=== PATIENT | male | born 1945 | race Caucasian/White ===

== ENCOUNTER 2025-06-14 07:30 | Day surgery (SDC) | payer OTHER, SELFPAY ==
[2025-06-14] VITALS (14 sets, daily range): BP systolic 124–156; BP diastolic 69–81; BMI 27.0
[2025-06-14] MEDS: NSS 227 ML IV (09:51)
--- NOTE | 2025-06-14 11:38 | ITS.CL.CATH ---
Pbx Operator - Catheterization
Cardiac Catheterization
Procedure Report:
CARDIAC CATHETERIZATION REPORT
Date of Procedure: 06/14/2025
Referring: Jomar Lucas D.O.
INDICATION: Chest pain, abnormal stress test.
PROCEDURE:
1. Left heart catheterization.
2. Coronary angiography
A total of 30 minutes of procedural/moderate sedation was utilized. An independent medical insurance clerk was present to assist with and help manage the patient's level of consciousness and physiologic status.
ACCESS:
1. 6 Filipino right radial artery using a modified Seldinger technique.
CATHETERS:
1. 5 Filipino JR4.
2. 5 Filipino JL 3.5.
3. 6 Filipino AR 1.
HEMODYNAMIC DATA
Weight (kg): 75.8
AO (s/d/x, mmHg): 130/75/101
LV (s/x mmHg): 130/6
AV gradient (x, mmHg): None.
LEFT VENTRICULOGRAPHY: Not performed.
CORONARY ANGIOGRAPHY
Dominance: Right.
Left Main: Normal size, bifurcating vessel. There is an 80% lesion in the ostium of the left main coronary artery.
LAD: Normal size vessel with multiple small diagonals. There are luminal irregularities and dense external calcification in the proximal vessel.
Ramus: Congenitally absent.
Circumflex: Large size, nondominant vessel giving rise to 2 obtuse marginals before turning towards the apex as a large left posterolateral branch. There may be some disease in the first obtuse marginal, but the gentle injection due to the
dampening does not fully opacify OM1. The remainder of the circumflex is normal.
RCA: Small to medium size, dominant vessel with a large conus branch and a low origin requiring an AR-1 catheter for engagement. The vessel is chronically totally occluded in its midsection. The distal RCA and RPDA fill via right to right
bridging collaterals.
INTERVENTION(S)
None.
Closure Device: Vascular band.
Radiation (mGy): 463.23
DAP (cm2.Gy): 37.8550
Fluoroscopy time (minutes): 6.2
CONCLUSIONS
1. Right dominant circulation with a mid vessel chronic total occlusion with bridging collaterals of the low-lying RCA which requires an AR-1 for engagement, an 80% lesion in the ostium of the left main coronary artery and possible disease in the
first obtuse marginal that is not fully opacified due to gentle injection from catheter dampening in the left main.
2. Normal filling pressures (LVEDP = 6 mmHg at 75.8 kg).
RECOMMENDATIONS:
1. Expectant management after cardiac catheterization via right radial approach.
2. Limited weight bearing on the right wrist for one week.
3. Consultation with CT surgery regarding optimal revascularization strategy. The ostial nature of the left main coronary artery would be a good candidate for PCI or surgery. PCI would not address his right coronary artery PROCEDURE RN.
4. OMT/GDMT as hemodynamics will tolerate. Continue metoprolol and add isosorbide mononitrate 30 mg daily.
5. Aggressive lipid management. Continue high-dose, high potency statin with goal LDL <55.
6. Echocardiogram ordered and pending to evaluate LV function and valve function.
Copy to: Jomar Lucas D.O., Pal Choi D.O.
Jayden Corbin, DO, FACC, FACP
[2025-06-14] MEDS: NSS 1000 IV (12:32)
== END 2025-06-14 15:15 | disposition home or self-care (01) ==
LOC: CATH 07:30
PROVIDERS: ATTENDING PHYSICIAN Internal Medicine Cardiovascular Disease; FAMILY PHYSICIAN Family Medicine; OTHER PHYSICIAN Internal Medicine Cardiovascular Disease
DX: I25.10 Atherosclerotic heart disease of native coronary artery without angina pectoris (principal); R07.9 Chest pain, unspecified; R94.39 Abnormal result of other cardiovascular function study; I25.82 Chronic total occlusion of coronary artery
CPT/HCPCS: 93306; 93458; C1769; C1894; Q9967

== ENCOUNTER 2025-06-28 07:08 | Day surgery (SDC) | payer OTHER, SELFPAY ==
[2025-06-28] VITALS (19 sets, daily range): BP systolic 96–157; BP diastolic 59–87; BMI 26.4
[2025-06-28 08:08] LABS: Hematocrit 37.0 % (39.0-52.0); Hemoglobin 13.0 g/dL (13.0-18.0); Mean Corp Hgb Conc. 35.1 g/dL (33.0-37.0); Mean Corpuscular Volume 105.7 fL (80.0-94.0); Platelet Count 118 10^3/uL (130-400); Red Cell Dist. Width 13.2 % (11.5-14.5)
[2025-06-28 08:20] LABS: Blood Urea Nitrogen 28 mg/dl (9-20); Calcium 9.0 mg/dl (8.4-10.2); Carbon Dioxide 27 mmol/L (22-30); Chloride 109 mmol/L (98-107); Estimated Creatinine Clearance 39 ml/min; Glucose 102 mg/dl (70-99); Potassium 4.1 mmol/L (3.5-5.1); Sodium 142 mmol/L (135-145); eGFR 50.81
[2025-06-28] MEDS: NSS 229 ML IV (08:20)
--- NOTE | 2025-06-28 10:05 | ITS.CL.ANGIO ---
Screener Perfumer - Angioplasty
Angioplasty
Procedure Report:
CARDIAC CATHETERIZATION REPORT
Date of Procedure: 06/28/2025
Referring: Dominguez Figueroa M.D.
INDICATION: Known left main coronary artery stenosis, pending prostate cancer treatment, post consultation with CT surgery at which point it was determined that there was equipoise between CABG and PCI.
PROCEDURE:
1. Left heart catheterization.
2. Left coronary angiography.
3. Successful IVUS guided PCI of the 90% ostial left main coronary artery disease lesion.
A total of 69 minutes of procedural/moderate sedation was utilized. An independent medical imaging technologist was present to assist with and help manage the patient's level of consciousness and physiologic status.
ACCESS:
1. 6 [place] Citizen right radial artery using a modified Seldinger technique.
CATHETERS:
1. 6 [place] Citizen JL 3.5 guiding catheter..
2. 5 [place] Citizen JR4.
HEMODYNAMIC DATA
Weight (kg): 76.2
AO (s/d/x, mmHg): 161/84/116
LV (s/x mmHg): 164/19 (A wave to 32)
AV gradient (x, mmHg): None.
LEFT VENTRICULOGRAPHY: Not performed.
CORONARY ANGIOGRAPHY
Dominance: Right.
Left Main: Normal size, bifurcating vessel. There is an 80-90% lesion in the ostium of the left main coronary artery with moderate calcification.
LAD: Normal size vessel with multiple small diagonals. There are luminal irregularities and dense external calcification in the proximal vessel.
Ramus: Congenitally absent.
Circumflex: Large size, nondominant vessel giving rise to 2 obtuse marginals before bending towards the apex as a large left posterolateral branch. There is a 70% lesion in the midportion of the first obtuse marginal.
RCA: Not injected. Known to be a small to medium size, dominant vessel with a large conus branch in the low origin requiring an AR-1 for catheter engagement. The vessel is known to be chronically totally occluded in its midsection with
the distal RCA filling the via right to right bridging collaterals.
INTERVENTION(S)
1. Successful IVUS guided PCI of the 80-90% ostial left main coronary artery lesion (Xience Skypoint 3.5 x 12 GRAEME, postdilated with a 4.0 NC balloon) with reduction of stenosis to 0%, maintaining MARCIN-3 flow.
Narrative:
The decision was made to proceed with percutaneous coronary intervention. The 6Fr JL 3.5 guiding catheter was advanced to the aortic root and seated in the left main coronary artery, with immediate pressure dampening seen on engagement. Additional
heparin was given and a Power Turn Flex wire was advanced into the distal LAD which allowed us to disengage the catheter and normalize pressure. The patient did require a single dose of phenylephrine 100 mcg. A BMW wire was advanced and seated in
the left coronary cusp to act as a bumper wire. The 80-90% ostial left main coronary artery lesion was predilated with a 2.0 x 12 semi-compliant balloon to 12 li. The semicompliant balloon was withdrawn and clopidogrel 600 mg was given.
The decision was made to perform intracoronary imaging. An IVUS catheter was advanced through the guiding catheter and into the ostium of the artery. Ring down was performed once the imaging crystal was no longer inside of the guiding catheter. The
IVUS catheter was advanced into the left main coronary artery. Intravascular ultrasound was performed in a retrograde fashion using a slow pullback. Intracoronary imaging demonstrated severe ostial/proximal left main coronary artery atherosclerosis
and stenosis. There was moderate calcification. Vessel sizing was performed.
The IVUS catheter was withdrawn and a 3.5 x 12 noncompliant balloon was advanced into the left main coronary artery. The lesion was dilated to 12 li.
The semi-compliant balloon was removed and a Xience Skypoint 3.5 x 8 drug-eluting stent was advanced. As we sat the stent in position, it became clear that an 8 mm stent would be too short to cover the lesion entirely. We were also concerned about
the inability to easily advance the 8 mm stent. The stent was withdrawn and the 3.5 x 12 noncompliant balloon was readvanced. The lesion underwent additional angioplasty to 14 li. A Xience Skypoint 3.5 x 12 drug-eluting stent was advanced and
seated in the left main coronary artery. Meticulous care was taken while positioning the stent, ensuring that the distal aspect of the stent covered the proximal lesion but did not intrude into the bifurcation. We also confirmed that the proximal
margin of the stent protruded into the aorta by approximately 1�2 stent cells. When we were satisfied with our position the bumper wire was readvanced ensuring that the stent would not be biased or compressed by the guide and the stent was deployed
at 12 atmospheres. The stent balloon was removed. A 4.0 x 12 noncompliant balloon was advanced into the stent and the stent was postdilated to 14 atmospheres.
The noncompliant balloon was withdrawn and IVUS was repeated. This demonstrated good stent expansion and apposition throughout the entire stented segment with the stent protruding into the aorta by approximately 1�2 stent cells. There was some
very mild underexpansion in the distal aspect of the stented segment. The 4.0 x 12 noncompliant balloon was readvanced and the entire stent was postdilated to 18 li. The noncompliant balloon was withdrawn.
Angiography was performed in orthogonal views, confirming good stent expansion and an excellent angiographic result. The coronary wire was withdrawn and the guide was disengaged from the artery. The catheter was removed over a standard J-wire.
Closure Device: Vascular band.
Radiation (mGy): 1096.69
DAP (cm2.Gy): 50.1186
Fluoroscopy time (minutes): 14.9
CONCLUSIONS
1. Right dominant circulation with COMMUNICATIONS OPERATOR of the mid RCA, a 70% lesion in the midportion of OM1 and a critical, 80-90% lesion in the ostium of the left main coronary artery status post successful IVUS guided PCI (Xience Skypoint 3.5 x 12 GRAEME,
postdilated with a 4.0 NC balloon) with reduction in stenosis to 0%, maintaining MARCIN-3 flow.
2. Moderately elevated filling pressures (LVEDP = 19 mmHg at 76.2 kg) with evidence of diastolic dysfunction (A wave to 32 mmHg).
RECOMMENDATIONS:
1. Expectant management after cardiac catheterization via right radial approach.
2. Limited weight bearing on the right for one week.
3. Dual antiplatelet therapy with aspirin and clopidogrel for at least 12 months, possibly lifelong given the critical position of the stent.
4. Aggressive secondary prevention with high-dose, high potency statin. Goal LDL <55.
5. Start furosemide 40 mg daily. BMP in 1 week.
6. OMT/GDMT as hemodynamics will tolerate.
7. Referral to cardiac rehab.
8. Initiate prostate cancer treatment at urology/oncology's discretion.
Copy to: Dominguez Figueroa M.D., Pal Choi, D.O., Jomar Lucas, D.O.
Jayden Corbin DO, FACC, FACP
[2025-06-28] MEDS: NSS 1000 IV (11:15)
--- NOTE | 2025-06-28 12:47 | CM ---
Reviewed chart. Met with Mr. Hackett to review discharge plans. He states prior to admission he resides alone in a cottage at [facility]. He states he has been there for two and half years. He states his cottage is on one
level. He states prior to admission he was independent with ambulation and adls. He states he does not have any DME in the home. He states he has a prescription plan. The discharge plan is to return home when medically stable.
--- NOTE | 2025-06-28 14:30 | PTCARENOTE ---
Pt received post procedure at 1200. Right radial band intact, site WNL, small amount of ecchymosis. Room air sat 95%. Denies any pain or sob. SR, rate in the 70's.
[2025-06-28] MEDS: LIPITOR 10 MG PO (17:54)
[2025-06-28] MEDS: TYLENOL 650 MG PO (21:25)
--- NOTE | 2025-06-28 22:37 | PTCARENOTE ---
Assumed care on pt at 1900, aaox3, denies cp or SOB. R radial site with CDI dressing, area around site ecchymotic, free of hematomas, Pox 94% RA on right hand. SR on the monitor, HR 60's. Pt with flushed face, temp rechecked and 99.0. BP stable.
Updated on POC, call ortiz within reach.
[2025-06-29 03:52] VITALS: BP 127/51
[2025-06-29 04:27] LABS: Hematocrit 37.8 % (39.0-52.0); Hemoglobin 12.7 g/dL (13.0-18.0); Mean Corp Hgb Conc. 33.6 g/dL (33.0-37.0); Mean Corpuscular Volume 109.2 fL (80.0-94.0); Platelet Count 121 10^3/uL (130-400); Red Cell Dist. Width 13.2 % (11.5-14.5)
[2025-06-29 04:38] LABS: Blood Urea Nitrogen 21 mg/dl (9-20); Calcium 8.4 mg/dl (8.4-10.2); Carbon Dioxide 23 mmol/L (22-30); Chloride 109 mmol/L (98-107); Estimated Creatinine Clearance 46 ml/min; Glucose 104 mg/dl (70-99); HDL Cholesterol 43 mg/dl; LDL Cholesterol, Calculated 84 mg/dl; Potassium 3.9 mmol/L (3.5-5.1); Sodium 135 mmol/L (135-145); Very Low Density Lipoprotein 28 mg/dl (0-30); eGFR > 60.00
[2025-06-29] MEDS: SYNTHROID 25 MCG PO (06:07)
[2025-06-29 06:44] VITALS: BP 103/57
[2025-06-29] MEDS: TOPROL XL 25 MG PO (07:19)
[2025-06-29] MEDS: PROTONIX 40 MG PO (07:19)
[2025-06-29] MEDS: PLAVIX 75 MG PO (07:20)
[2025-06-29] MEDS: LOW STRENGTH ASPIRIN 81 MG PO (07:20)
--- NOTE | 2025-06-29 07:43 | W.PN.CD ---
Today's Communication / Plan
-
Diphenhydramine for pruritis.
Prednisolone if indicated.
Hold clopidogrel.
Start ticagrelor tomorrow morning.
Impression / Plan
-
Impression/Plan: 80 y/o male with CAD and prostate CA admitted for elective LMCA PCI prior to prostate treatment.
#CAD
-Chronic, stable.
-Ostial 80% ostial LMCA lesion s/p IVUS guided PCI (Xience Skypoint 3.5 x 12 GRAEME, post dilated with a 4.0 NC balloon) on 06/28/2025.
-DAPT for at least one year, followed by aspirin indefinitely.
-Stop isosorbide mononitrate.
-Continue metoprolol, statin.
#New Rash
-Acute.
-Suspect clopidogrel as the culprit, though delayed contrast reaction is also possible.
-Hold clopidogrel (already given) and transition to ticagrelor. Age prevents use of prasugrel.
-Diphenhydramine for symptom control.
-Consider course of prednisolone if indicated.
#Prostate CA
-Chronic.
-Patient has undergone pre-treatment planning.
-Patient may start treatment without further cardiovascular testing.
#Dispo
-IVU status.
-Full code.
-Transitioning to ticagrelor due to rash with clopidogrel, contraindication to prasugrel.
Subjective/Interval History:
PCI of ostial LMCA yesterday.
New pruritic rash developed overnight.
DATA:
Cardiac Catheterization/PCI, 06/28/2025:
CONCLUSIONS
1. Right dominant circulation with DETAIL SUPERVISOR of the mid RCA, a 70% lesion in the midportion of OM1 and a critical, 80-90% lesion in the ostium of the left main coronary artery status post successful IVUS guided PCI (Xience Skypoint 3.5 x 12 GRAEME,
postdilated with a 4.0 NC balloon) with reduction in stenosis to 0%, maintaining MARCIN-3 flow.
2. Moderately elevated filling pressures (LVEDP = 19 mmHg at 76.2 kg) with evidence of diastolic dysfunction (A wave to 32 mmHg).
Physical Exam
Vital Signs/Labs
Vital Signs
Temp Pulse Resp BP Pulse Ox
36.6 C 61 20 103/57 94
06/29/25 06:43 06/29/25 07:00 06/29/25 06:43 06/29/25 06:44 06/29/25 06:44
06/27/25 06/28/25 06/29/25
11:59 11:59 11:59
Actual Weight 76.3 kg
06/29/25 04:01
06/29/25 04:01
Triglycerides 144 mg/dl (10-149) 06/29/25 04:01
LDL Cholesterol, Calc 84 mg/dl 06/29/25 04:01
VLDL Cholesterol, Calc 28 mg/dl (0-30) 06/29/25 04:01
HDL Cholesterol 43 mg/dl 06/29/25 04:01
Physical Exam
Constitutional: No acute distress and Comfortable
EENT: Anicteric and Moist mucous membranes
Cardiovascular: Rhythm & rate is regular, Pedal edema is absent, JVD pressure is normal, S1S2 is normal and Murmur/rub/gallop absent
Respiratory: Respiratory effort normal, Lungs clear to auscul., Wheeze Absent, Crackles Absent and Rhonchi Absent
GI: Soft, Distention absent, Flat, Non tender and Normal bowel sounds
Neuro/Psych: AO x 3
Other: Cath Site (Right radial access site is C/D/I.)
Data Reviewed
-
Date of Service: June 29, 2025
Medical Decision Making: Reviewed Test Results, Independent Historian Assessment, Test Interpretation and Review of Case with other Provider (Dr. Lucas)
EKG: Tracing Personally Visualized and interpreted and Report Reviewed by me
Medical Tests (PFT, Pathology etc): Image Personally Visualized and interpreted, Report Reviewed by me, Discussed with Patient and Discussed with Family
Labs: Labs Reviewed by me
Old Records: Reviewed
[2025-06-29] MEDS: BENADRYL 50 MG IV (08:44)
--- NOTE | 2025-06-29 09:49 | PTCARENOTE ---
Pt received this am oob ad miguel ángel. Right radial site mildly ecchymotic. Room air sat 95%. Denies any pain or sob. Arms and legs noted to be reddened. Pt states that his legs were really itching last evening but not at this time. Medicated with Benadryl
IV as ordered. Dr. Corbin and Susanna Gao WILDLIFE REMOVAL SPECIALIST aware.
[2025-06-29] MEDS: LASIX 40 MG PO (10:10)
--- NOTE | 2025-06-29 10:38 | CM ---
Reviewed chart. Telephone call to [facility] to check on co-pay for Brilinta 90 mg po bid. His co-pay would be $10.00 a month. [facility] states they do not have it stock but will order it today and will be there tomorrow. 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
Met with Mr. Hackett to review discharge plans. Reviewed co-pay information and he is agreeable to the co-pay. Prior to admission he resides alone in a cottage at [facility]. He has been there for two and half years. His
cottage is on one level. Prior to admission he was independent with ambulation and adls. He does not have any DME in the home. He states he has a prescription plan. The discharge plan is to return home when medically stable.
[2025-06-29 12:01] VITALS: BP 124/80
[2025-06-29 14:55] VITALS: BP 110/59
[2025-06-29] MEDS: LIPITOR 10 MG PO (17:01)
[2025-06-29 18:24] VITALS: BP 134/77
--- NOTE | 2025-06-29 21:26 | PTCARENOTE ---
Received pt @ change of shift. AAOx3, VSS-- NSR on monitor. Denies CP, SOB, and pain @ this time. Redness/rash on arms, legs, and back still present, warm to touch. Pt denies itchiness and feels redness is unchanged from earlier. Right radial site
is clean, dry, and intact. Ecchymotic, but soft to touch. Discussed plan of care for evening. Pt verbalizes understanding. Call ortiz within reach.
[2025-06-29] MEDS: ZETIA 10 MG PO (22:26)
[2025-06-29 22:28] VITALS: BP 110/53
[2025-06-30 05:07] VITALS: BP 113/79
[2025-06-30] MEDS: SYNTHROID 25 MCG PO (05:29)
[2025-06-30 06:10] LABS: Hematocrit 37.3 % (39.0-52.0); Hemoglobin 12.6 g/dL (13.0-18.0); Mean Corp Hgb Conc. 33.8 g/dL (33.0-37.0); Mean Corpuscular Volume 110.0 fL (80.0-94.0); Platelet Count 115 10^3/uL (130-400); Red Cell Dist. Width 13.2 % (11.5-14.5)
[2025-06-30 06:20] LABS: Blood Urea Nitrogen 21 mg/dl (9-20); Calcium 8.5 mg/dl (8.4-10.2); Carbon Dioxide 26 mmol/L (22-30); Chloride 107 mmol/L (98-107); Estimated Creatinine Clearance 42 ml/min; Glucose 101 mg/dl (70-99); Magnesium 2.3 mg/dl (1.6-2.3); Potassium 4.0 mmol/L (3.5-5.1); Sodium 140 mmol/L (135-145); eGFR 55.53
--- NOTE | 2025-06-30 06:35 | PTCARENOTE ---
Pt rested quietly all night. Rhythmic and steady breathing, denies chest pain and SOB. Redness less intense on arms and legs but still present, warm to touch. Denies itchiness.
[2025-06-30 06:39] VITALS: BP 120/74
--- NOTE | 2025-06-30 07:33 | W.PN.CD ---
Today's Communication / Plan
-
Ticagrelor loading this morning.
If he remains stable throughout the morning, we can likely discharge this afternoon.
Impression / Plan
-
Impression/Plan: 80 y/o male with CAD and prostate CA admitted for elective LMCA PCI prior to prostate treatment.
#CAD
-Chronic, stable.
-Ostial 80% ostial LMCA lesion s/p IVUS guided PCI (Xience Skypoint 3.5 x 12 GRAEME, post dilated with a 4.0 NC balloon) on 06/28/2025.
-DAPT with ticagrelor/ASA for at least one year, followed by aspirin indefinitely.
-Stop isosorbide mononitrate.
-Continue metoprolol, statin.
#New Rash
-Acute, improving.
-Suspect reaction to clopidogrel.
-Diphenhydramine for symptom control.
-Consider course of prednisolone if indicated.
#Prostate CA
-Chronic.
-Patient has undergone pre-treatment planning.
-Patient may start treatment without further cardiovascular testing.
#Dispo
-IVU status.
-Full code.
-Transitioning to ticagrelor due to rash with clopidogrel, contraindication to prasugrel.
-Discharge around 12:00 if no further adverse medication reaction.
Subjective/Interval History:
Patient reports rash/pruritis less intense.
Ticagrelor load this morning.
DATA:
Cardiac Catheterization/PCI, 06/28/2025:
CONCLUSIONS
1. Right dominant circulation with FORM SETTER of the mid RCA, a 70% lesion in the midportion of OM1 and a critical, 80-90% lesion in the ostium of the left main coronary artery status post successful IVUS guided PCI (Xience Skypoint 3.5 x 12 GRAEME,
postdilated with a 4.0 NC balloon) with reduction in stenosis to 0%, maintaining MARCIN-3 flow.
2. Moderately elevated filling pressures (LVEDP = 19 mmHg at 76.2 kg) with evidence of diastolic dysfunction (A wave to 32 mmHg).
Physical Exam
Vital Signs/Labs
Vital Signs
Temp Pulse Resp BP Pulse Ox
36.6 C 63 20 113/79 93
06/30/25 06:39 06/30/25 06:30 06/30/25 06:39 06/30/25 05:07 06/30/25 06:39
06/28/25 06/29/25 06/30/25
11:59 11:59 11:59
Actual Weight 76.3 kg
06/30/25 05:14
06/30/25 05:14
Magnesium 2.3 mg/dl (1.6-2.3) 06/30/25 05:14
Triglycerides 144 mg/dl (10-149) 06/29/25 04:01
LDL Cholesterol, Calc 84 mg/dl 06/29/25 04:01
VLDL Cholesterol, Calc 28 mg/dl (0-30) 06/29/25 04:01
HDL Cholesterol 43 mg/dl 06/29/25 04:01
Physical Exam
Constitutional: No acute distress and Comfortable
EENT: Anicteric and Moist mucous membranes
Cardiovascular: Rhythm & rate is regular, Pedal edema is absent, JVD pressure is normal, S1S2 is normal and Murmur/rub/gallop absent
Respiratory: Respiratory effort normal, Lungs clear to auscul., Wheeze Absent, Crackles Absent and Rhonchi Absent
GI: Soft, Distention absent, Flat, Non tender, Normal bowel sounds and Distention present
Neuro/Psych: AO x 3
Other: Cath Site (Right radial access site is C/D/I.)
Data Reviewed
-
Date of Service: June 30, 2025
Medical Decision Making: Reviewed Test Results, Independent Historian Assessment and Test Interpretation
EKG: Tracing Personally Visualized and interpreted and Report Reviewed by me
Echo: Report Reviewed by me
X-Ray/CT/US/MRI/NUC/PET: Image Personally Visualized and interpreted and Report Reviewed by me
Medical Tests (PFT, Pathology etc): Image Personally Visualized and interpreted, Report Reviewed by me and Discussed with Patient
Labs: Labs Reviewed by me
Old Records: Reviewed
[2025-06-30] MEDS: LOW STRENGTH ASPIRIN 81 MG PO (08:08)
[2025-06-30] MEDS: PROTONIX 40 MG PO (08:08)
[2025-06-30] MEDS: LASIX 40 MG PO (08:08)
[2025-06-30] MEDS: TOPROL XL 25 MG PO (08:09)
[2025-06-30] MEDS: BRILINTA 180 MG PO (08:10)
--- NOTE | 2025-06-30 08:36 | PTCARENOTE ---
received patient this am lying in bed, on walking runs looked at red, warm spots on bilat arms and legs. gave Brilinta loading dose as ordered. monitor4 shows NSR, VSS. patient wanting to go home today.
--- NOTE | 2025-06-30 10:12 | W.DS.TRANS ---
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
-
Discharge Instructions:
Discharge Diagnosis/Procedures Angioplasty and stent to Left Main artery
Diet Low Cholesterol
Driving Restrictions No driving for 24 hours
Blood Work Check BMP in 1 week
Other Services Cardiac Rehab
Instructions:
Stand-Alone Forms: DC Instructions- Cath/EP Lab
Changes to Home Medications: Yes
Discharge Medications:
DC Medications w/original date entered in [employer]
aspirin 81 mg tablet 81 mg PO DAILY Blood Clot Prevention/Tx 06/14/25
denosumab 60 mg/mL subcutaneous syringe (Prolia) 60 mg SC [id number] prostate cancer 06/14/25
levothyroxine 25 mcg tablet (Synthroid) 25 mcg PO DAILY Thyroid 06/14/25
loratadine 10 mg tablet 10 mg PO DAILY PRN as needed for allergies 06/14/25
metoprolol succinate 25 mg tablet,extended release 24 hr 25 mg PO DAILY Heart Disease/Condition 06/14/25
nitroglycerin 0.4 mg sublingual tablet 0.4 mg sublingual Q5-15M PRN chest pain 06/14/25
pantoprazole 40 mg tablet,delayed release 40 mg PO DAILY Gastrointestinal Issue 06/14/25
ezetimibe 10 mg tablet (Zetia) 10 mg PO QPM #30 tabs 06/29/25
furosemide 40 mg tablet (Lasix) 40 mg PO DAILY #90 tabs 06/29/25
lovastatin 40 mg tablet 40 mg PO QPM #1 tab 06/29/25
ticagrelor 90 mg tablet (Brilinta) 90 mg PO BID #60 tabs 06/29/25
Home Medication Changes
new to ticagrelor, lasix, and ezetimibe, stopped isosorbide
Pending Results: No
[2025-06-30 11:02] VITALS: BP 118/80
--- NOTE | 2025-06-30 11:23 | CM ---
Addendum entered by Heather Wu 06/30/25 13:37:
Telephone call to [email or web address]. His Brilinta is there are ready for pickup, Cost:$9.97.
Original Note:
Reviewed chart. Telephone call to [email or web address] to check if his Brilinta 90 mg po has been delivered. [facility] states they get the delivery around 12:00 noon. and it will be ready for pick-up around 2:00 p.m. Updated Mr. Hackett regarding
Brilinta. Prior to admission he resides alone in a cottage at [facility]. He has been there for two and half years. His cottage is on one level. Prior to admission he was independent with ambulation and adls. He does
not have any DME in the home. He states he has a prescription plan. The discharge plan is to return home when medically stable.
--- NOTE | 2025-06-30 13:13 | PTCARENOTE ---
D/C instructions given to patient, verbalizes understanding. INT D/C'd, telemetry D/C'd, personal belongings packed and sent home with patient. D/C to home via wc accompanied by staff.
== END 2025-06-30 13:15 | disposition home or self-care (01) ==
LOC: CATH 07:08
PROVIDERS: Nurse Practitioner; Nurse Practitioner Adult Health; ATTENDING PHYSICIAN Internal Medicine Cardiovascular Disease; FAMILY PHYSICIAN Family Medicine; OTHER PHYSICIAN Internal Medicine Cardiovascular Disease
DX: I25.10 Atherosclerotic heart disease of native coronary artery without angina pectoris (principal); I10 Essential (primary) hypertension; E78.5 Hyperlipidemia, unspecified; K21.9 Gastro-esophageal reflux disease without esophagitis; Z79.82 Long term (current) use of aspirin; Z79.899 Other long term (current) drug therapy; Z79.890 Hormone replacement therapy; Z79.02 Long term (current) use of antithrombotics/antiplatelets
CPT/HCPCS: 92978; 99152; 99153; 80048; 80061; 83735; 85027; 85347; 93005; C1725; C1769; C1874; C1894; C9600; Q9967